=== PATIENT | male | born 1990 | race Caucasian/White ===

== ENCOUNTER 2024-08-27 09:05 | Outpatient (CLI) | payer BC | END 2024-08-27 09:06 | disposition home or self-care (01) | LOC: CSHWCC 09:05 | PROVIDERS: ATTEND Nurse Practitioner Family | DX: E11.621 Type 2 diabetes mellitus with foot ulcer (principal); L97.522 Non-pressure chronic ulcer of other part of left foot with fat layer exposed; E11.65 Type 2 diabetes mellitus with hyperglycemia | CPT/HCPCS: 11042; 99214; G0463 ==

== ENCOUNTER 2024-08-29 13:13 | Outpatient (CLI) | payer BC | END 2024-08-29 13:14 | disposition home or self-care (01) | LOC: CSHWCC 13:13 | PROVIDERS: ATTEND Family Medicine | DX: E11.621 Type 2 diabetes mellitus with foot ulcer (principal); L97.522 Non-pressure chronic ulcer of other part of left foot with fat layer exposed; E11.65 Type 2 diabetes mellitus with hyperglycemia | CPT/HCPCS: 11042 ==

== ENCOUNTER 2024-09-03 13:35 | Outpatient (CLI) | payer BC | END 2024-09-03 13:36 | disposition home or self-care (01) | LOC: CSHWCC 13:35 | PROVIDERS: ATTEND Nurse Practitioner Family | DX: E11.621 Type 2 diabetes mellitus with foot ulcer (principal); L97.522 Non-pressure chronic ulcer of other part of left foot with fat layer exposed; E11.65 Type 2 diabetes mellitus with hyperglycemia | CPT/HCPCS: 11042 ==

== ENCOUNTER 2024-09-10 14:51 | Outpatient (CLI) | payer BC | END 2024-09-10 14:52 | disposition home or self-care (01) | LOC: CSHWCC 14:51 | PROVIDERS: ATTEND Nurse Practitioner Family | DX: E11.621 Type 2 diabetes mellitus with foot ulcer (principal); E11.65 Type 2 diabetes mellitus with hyperglycemia; L97.522 Non-pressure chronic ulcer of other part of left foot with fat layer exposed | CPT/HCPCS: 11042 ==

== ENCOUNTER 2024-09-18 15:36 | Outpatient (CLI) | payer BC | END 2024-09-18 15:37 | disposition home or self-care (01) | LOC: CSHWCC 15:36 | PROVIDERS: ATTEND Nurse Practitioner Family | DX: E11.621 Type 2 diabetes mellitus with foot ulcer (principal); L97.522 Non-pressure chronic ulcer of other part of left foot with fat layer exposed; E11.65 Type 2 diabetes mellitus with hyperglycemia | CPT/HCPCS: 11042 ==

== ENCOUNTER 2024-09-25 15:17 | Outpatient (CLI) | payer BC | END 2024-09-25 15:18 | disposition home or self-care (01) | LOC: CSHWCC 15:17 | PROVIDERS: ATTEND Nurse Practitioner Family | DX: E11.621 Type 2 diabetes mellitus with foot ulcer (principal); L97.522 Non-pressure chronic ulcer of other part of left foot with fat layer exposed; E11.65 Type 2 diabetes mellitus with hyperglycemia | CPT/HCPCS: 29445 ==

== ENCOUNTER 2024-10-02 14:02 | Outpatient (CLI) | payer BC | END 2024-10-02 14:03 | disposition home or self-care (01) | LOC: CSHWCC 14:02 | PROVIDERS: ATTEND Nurse Practitioner Family | DX: E11.621 Type 2 diabetes mellitus with foot ulcer (principal); L97.522 Non-pressure chronic ulcer of other part of left foot with fat layer exposed; E11.65 Type 2 diabetes mellitus with hyperglycemia ==

== ENCOUNTER 2024-10-06 14:50 | Outpatient (CLI) | payer BC | END 2024-10-06 14:51 | disposition home or self-care (01) | LOC: CSHWCC 14:50 | PROVIDERS: ATTEND Nurse Practitioner Family | DX: E11.621 Type 2 diabetes mellitus with foot ulcer (principal); L97.522 Non-pressure chronic ulcer of other part of left foot with fat layer exposed; E11.65 Type 2 diabetes mellitus with hyperglycemia | CPT/HCPCS: 11042 ==

== ENCOUNTER 2024-10-13 16:00 | Outpatient (CLI) | payer BC | END 2024-10-13 16:01 | disposition home or self-care (01) | LOC: CSHWCC 16:00 | PROVIDERS: ATTEND Nurse Practitioner Family | DX: E11.621 Type 2 diabetes mellitus with foot ulcer (principal); L97.522 Non-pressure chronic ulcer of other part of left foot with fat layer exposed; E11.65 Type 2 diabetes mellitus with hyperglycemia | CPT/HCPCS: 97597 ==

== ENCOUNTER 2024-10-20 13:45 | Outpatient (CLI) | payer BC | END 2024-10-20 13:46 | disposition home or self-care (01) | LOC: CSHWCC 13:45 | PROVIDERS: ATTEND Nurse Practitioner Family | DX: E11.621 Type 2 diabetes mellitus with foot ulcer (principal); L97.522 Non-pressure chronic ulcer of other part of left foot with fat layer exposed; E11.65 Type 2 diabetes mellitus with hyperglycemia | CPT/HCPCS: 97597 ==

== ENCOUNTER 2024-10-28 13:41 | Outpatient (CLI) | payer BC | END 2024-10-28 13:42 | disposition home or self-care (01) | LOC: CSHWCC 13:41 | PROVIDERS: ATTEND Nurse Practitioner Family | DX: E11.621 Type 2 diabetes mellitus with foot ulcer (principal); L97.522 Non-pressure chronic ulcer of other part of left foot with fat layer exposed; E11.65 Type 2 diabetes mellitus with hyperglycemia | CPT/HCPCS: 29445 ==

== ENCOUNTER 2024-11-04 13:03 | Outpatient (CLI) | payer BC | END 2024-11-04 13:04 | disposition home or self-care (01) | LOC: CSHWCC 13:03 | PROVIDERS: ATTEND Nurse Practitioner Family | DX: E11.621 Type 2 diabetes mellitus with foot ulcer (principal); L97.522 Non-pressure chronic ulcer of other part of left foot with fat layer exposed; E11.65 Type 2 diabetes mellitus with hyperglycemia | CPT/HCPCS: 29445 ==

== ENCOUNTER 2024-11-11 13:58 | Outpatient (CLI) | payer BC | END 2024-11-11 13:59 | disposition home or self-care (01) | LOC: CSHWCC 13:58 | PROVIDERS: ATTEND Nurse Practitioner Family | DX: E11.621 Type 2 diabetes mellitus with foot ulcer (principal); L97.522 Non-pressure chronic ulcer of other part of left foot with fat layer exposed; E11.65 Type 2 diabetes mellitus with hyperglycemia | CPT/HCPCS: 11042; 99213; G0463 ==

== ENCOUNTER 2025-05-29 11:00 | Outpatient (CLI) | payer BC | END 2025-05-29 11:01 | disposition home or self-care (01) | LOC: CSHWCC 11:00 | PROVIDERS: ATTEND Nurse Practitioner Family | DX: E11.621 Type 2 diabetes mellitus with foot ulcer (principal); L97.521 Non-pressure chronic ulcer of other part of left foot limited to breakdown of skin; E11.65 Type 2 diabetes mellitus with hyperglycemia; R03.0 Elevated blood-pressure reading, without diagnosis of hypertension | CPT/HCPCS: 11042; 99213; G0463 ==

== ENCOUNTER 2025-07-02 14:05 | Outpatient (CLI) | payer BC | END 2025-07-02 14:06 | disposition home or self-care (01) | LOC: CSHWCC 14:05 | PROVIDERS: ATTEND Nurse Practitioner Family | DX: E11.621 Type 2 diabetes mellitus with foot ulcer (principal); L97.521 Non-pressure chronic ulcer of other part of left foot limited to breakdown of skin; E11.610 Type 2 diabetes mellitus with diabetic neuropathic arthropathy; S80.822D Blister (nonthermal), left lower leg, subsequent encounter; S90.425D Blister (nonthermal), left lesser toe(s), subsequent encounter; I87.2 Venous insufficiency (chronic) (peripheral); I10 Essential (primary) hypertension; E66.01 Morbid (severe) obesity due to excess calories | CPT/HCPCS: 11042; 36416; 99215; G0463 ==